=== PATIENT | female | born 1945 | race Caucasian/White ===

== ENCOUNTER 2020-01-09 10:21 | Outpatient (RCR) | payer SELFPAY | END 2020-01-09 23:59 | disposition home or self-care (01) | LOC: ANHAUDIO 10:21 | PROVIDERS: PCP Family Medicine; Visit Provider Family Medicine | DX: Z46.1 Encounter for fitting and adjustment of hearing aid (principal) | CPT/HCPCS: 92593 ==

== ENCOUNTER → 2021-12-24 09:45 | Outpatient (CLI) | payer MEDICARE, SELFPAY ==
--- NOTE | ~2021-12-24 | XR_ITS ---
EXAMINATION: XR ankle RT min 3V, XR foot LT min 3V, XR foot RT min 3V, XR ankle LT min 3V DATE: 12/24/2021 10:34 INDICATION: Bilateral ankle joint effusions with bruising and swelling TECHNIQUE: 1. Anteroposterior, mortise, additional oblique and lateral view of the left ankle were obtained. 2. Dorsoplantar, two oblique and lateral views of the left foot were obtained. 3. Anteroposterior, mortise, additional oblique and lateral view of the right ankle were obtained. 4. Dorsoplantar, two oblique and lateral views of the right foot were obtained. COMPARISON: None. FINDINGS: Left foot and ankle: Hallux valgus and bunion with hypertrophic changes at the medial head of the first metatarsal. Alignm ent of the left foot and ankle is otherwise normal. No fracture or osteochondral lesion. Mild polyart icular osteoarthritis at the first metatarsophalangeal and multiple tarsometatarsal and interphalange al joints. Tiny Achilles calcaneal spur. Additional small enthesophytes and tiny enthesopathic ossicl es along the medial margin of the medial malleolus. Increased density anterior to the tibiotalar join t line consistent with likely left ankle joint effusion. The soft tissues are otherwise unremarkable. Right foot and ankle: Hallux valgus and bunion with mild hypertrophic change at the medial head of the first metatarsal. Al ignment of the right foot and ankle is otherwise normal. No fracture or osteochondral lesion. Small p lantar calcaneal spur. Mild polyarticular osteoarthritis at the metatarsophalangeal and a few tarsal metatarsal and interphalangeal joints. No ankle joint effusion. The soft tissues are unremarkable. IMPRESSION: 1. Likely left ankle joint effusion. 2. Mild degenerative skeletal changes at both feet as detailed above. No acute osseous abnormality. Reviewed, dictated and finalized at location B. IMPRESSION: 1. Likely left ankle joint effusion. 2. Mild degenerative skeletal changes at both feet as detailed above. No acute osseous abnormality. IMPRESSION: 1. Likely left ankle joint effusion. 2. Mild degenerative skeletal changes at both feet as detailed above. No acute osseous abnormality. IMPRESSION: 1. Likely left ankle joint effusion. 2. Mild degenerative skeletal changes at both feet as detailed above. No acute osseous abnormality.
== END ==
PROVIDERS: PCP Physician Assistant; Visit Provider Physician Assistant
DX: M20.12 Hallux valgus (acquired), left foot (principal); M20.11 Hallux valgus (acquired), right foot; M21.612 Bunion of left foot; M21.611 Bunion of right foot; M19.072 Primary osteoarthritis, left ankle and foot; M19.071 Primary osteoarthritis, right ankle and foot; M77.31 Calcaneal spur, right foot
CPT/HCPCS: 73610; 73630

== ENCOUNTER → 2022-03-19 11:04 | Outpatient (CLI) | payer MEDICARE, SELFPAY ==
--- NOTE | ~2022-03-19 | XR_ITS ---
EXAMINATION: XR hip BI 2V w AP pelvis DATE: 03/19/2022 11:22 INDICATION: Low back pain. TECHNIQUE: An anteroposterior view of the pelvis and 2 views of each hip were obtained. COMPARISON: None. FINDINGS: Bone alignment is normal. No fracture. There is moderate osteoarthritis of the hips. There is severe lumbar spondylosis. A staple line overlies the pelvis. IMPRESSION: 1. Moderate osteoarthritis of the hips. Reviewed, dictated and finalized at location B.
--- NOTE | ~2022-03-19 | XR_ITS ---
EXAMINATION: XR lumbar spine min 4V DATE: 03/19/2022 11:22 INDICATION: Low back pain. TECHNIQUE: 5 views of lumbar spine were obtained. COMPARISON: None. FINDINGS: There is 3 mm anterolisthesis of L4 on L5. There is 3 degrees dextrocurvature of lumbar spi ne. Vertebral body heights are normal. There is moderately decreased disc height at L2-L3 and L3-L4, mildly decreased disc height at L4-L5, and severely decreased disc height at L5-S1. There is multilev el facet joint osteoarthritis, severe on the right at L4-L5 and L5-S1 and severe on the left from L3- L4 through L5-S1. IMPRESSION: 1. Severe lumbar spondylosis. Reviewed, dictated and finalized at location B.
== END ==
PROVIDERS: PCP Family Medicine; Visit Provider Physician Assistant
DX: M54.50 Low back pain, unspecified (principal); M47.816 Spondylosis without myelopathy or radiculopathy, lumbar region; M16.0 Bilateral primary osteoarthritis of hip
CPT/HCPCS: 72110; 73521

== ENCOUNTER 2023-05-17 10:41 | Outpatient (CLI) | payer MEDICARE, SELFPAY ==
--- NOTE | ~2023-05-17 | US_ITS ---
EXAMINATION:US venous doppler LE RT INDICATION:Right leg pain TECHNIQUE: Multiple grayscale, color flow and Doppler images of the right lower extremity deep venous systems were obtained and reviewed. COMPARISON:No prior studies for comparison. FINDINGS: The common femoral, superficial femoral and popliteal veins demonstrate normal respiratory variation, augmentation and compressibility. Color flow is also seen within the posterior tibial, pe roneal, greater saphenous and profunda veins. IMPRESSION: 1: No lower extremity deep venous thrombosis. Reviewed, dictated and finalized at location L. ARTIST
== END 2023-05-17 10:42 | disposition home or self-care (01) ==
PROVIDERS: PCP Family Medicine; Visit Provider Physician Assistant
DX: M79.604 Pain in right leg (principal)
CPT/HCPCS: 93971

== ENCOUNTER 2023-06-01 13:19 | Outpatient (CLI) | payer MEDICARE, SELFPAY ==
--- NOTE | ~2023-06-01 | US_ITS ---
EXAMINATION: US carotid duplex BI DATE: 06/01/2023 14:24 INDICATION: Pulsatile tinnitus, right ear. TECHNIQUE: Grayscale, color Doppler, and pulsed Doppler images of the cervical carotid arteries were obtained. The degree of vessel stenosis is placed in one of the following categories: normal, <50%, 5 0-69%, >=70% but less than near-occlusion, near-occlusion, or total occlusion. Note that percent sten osis relative to normal distal artery lumen diameter is indirectly measured from velocity measurement s as described by Anuj, et al. Radiology 2003; 229:340-346. COMPARISON: None. FINDINGS: RIGHT: The right common carotid artery (CCA) peak systolic velocity (PSV) is 71 cm/s. The right internal car otid artery (ICA) PSV is 100 cm/s. The right ICA end-diastolic velocity (EDV) is 32 cm/s. The right I CA/CCA PSV ratio is 1.4. Grayscale and color Doppler images yield an estimate of <50% diameter reduct ion from plaque in the ICA. There is antegrade flow in the right vertebral artery. LEFT: The left CCA PSV is 91 cm/s. The left ICA PSV is 109 cm/s. The left ICA EDV is 34 cm/s. The left ICA/ CCA PSV ratio is 1.2. Grayscale and color Doppler images yield an estimate of <50% diameter reduction from plaque in the ICA. There is antegrade flow in the left vertebral artery. IMPRESSION: 1. <50% stenosis in the right internal carotid artery. 2. <50% stenosis in the left internal carotid artery. Reviewed, dictated and finalized at location E. CY TRAINER
== END 2023-06-01 13:20 | disposition home or self-care (01) ==
PROVIDERS: PCP Family Medicine; Visit Provider Physician Assistant
DX: I65.23 Occlusion and stenosis of bilateral carotid arteries (principal); H93.A1 Pulsatile tinnitus, right ear; I12.9 Hypertensive chronic kidney disease with stage 1 through stage 4 chronic kidney disease, or unspecified chronic kidney disease
CPT/HCPCS: 93880

== ENCOUNTER 2024-08-29 08:43 | Outpatient (CLI) | payer MEDICARE, SELFPAY ==
--- NOTE | ~2024-08-29 | CT_ITS ---
CT ANGIOGRAM NECK AND HEAD History: Retinal hemorrhage. Technique: Axial noncontrast imaging of the brain was performed. Serial spiral axial images through t he head and neck were then obtained during arterial phase IV injection of 100 cc of Omnipaque 350. 3- D postprocessing and MIP images were then reconstructed on the remote workstation. Dose reduction mukesh hnique was used on this scan by utilizing automated exposure control and iterative reconstruction mukesh hnique. The dose-length product (DLP) was 1415.06 mGy-cm. CTA neck findings: Bilateral vertebral arteries are patent. Bilateral common carotid, internal carot id, and external carotid arteries are patent. No large vessel occlusion or stenosis. No aneurysm. The proximal right internal carotid artery demonstrates 0% stenosis relative to the normal distal artery lumen diameter. The proximal left internal carotid artery demonstrates 0% stenosis relative to the n ormal distal artery lumen diameter. CTA head findings: Distal vertebral arteries, basilar artery, and posterior cerebral arteries are pat ent. Distal internal carotid arteries, middle cerebral arteries, and anterior shoulder arteries are p atent. No large vessel occlusion or stenosis. No aneurysm. Axial noncontrast imaging of the brain is unremarkable. No acute infarct, intracranial hemorrhage or mass lesion seen. No mass effect or midline shift. Leyva-white differentiation is intact. Ventricles a nd subarachnoid spaces are unremarkable. Paranasal sinuses and mastoid air cells are clear. Calvarium intact. No intraorbital abnormality seen. Impression: No significant abnormality seen. Reviewed, dictated and finalized at [facility]. Impression: No significant abnormality seen.
[2024-08-29 09:13] LABS: Estimated Glomerular Filt Rate 43
--- OUTSIDE RECORDS SUMMARY | 2024-08-29 09:18 | XMS_ITS | Referral Summary ---
Author Organization [facility] Address [address] [place] [address] Care Team Providers Care Assembler Flexible Leads Name Role Phone Kash Vela MD Primary Care Provider Tanvi Norris CNM Unavailable [phone] Encounters Date Type Department Care Team Description 07/04/2024 8:45 AM SOLAR INSTALLER PV Office Visit [facility] Surgery [address] [facility] Floor [address] [place] [id number] Lorena Thurman NP Atypical ductal hyperplasia of right breast (Primary Dx); Abnormal finding on breast imaging 07/04/2024 8:21 AM SOLAR INSTALLER PV - 07/04/2024 11:59 PM SOLAR INSTALLER PV Hospital Encounter [facility] - Breast Imaging [address] [place] [address] [address] [place] [address] Mass of right breast, unspecified quadrant; Other abnormal and inconclusive findings on diagnostic imaging of breast Discharge Disposition: Discharge to home or self care from Last 3 Months Allergies Active Allergy Reactions Criticality Noted Date Comments Acetaminophen-Codeine Nausea And Vomiting 04/15 Amoxicillin Clindamycin Dizziness High 05/29/2021 Codeine Prochlorperazine Urticaria Medium 03/01/2017 Propoxyphene Propoxyphene-Acetaminophen Nausea And Vomiting 04/15/2016 Medications meclizine (ANTIVERT) 25 mg tablet Take 1 tablet (25 mg total) by mouth as needed Active levothyroxine (SYNTHROID) 88 mcg tablet Take 1 tablet (88 mcg total) by mouth daily 01/24/2021 Active atenoloL (TENORMIN) 50 mg tablet Take 1 tablet (50 mg total) by mouth daily Active atorvastatin (LIPITOR) 20 mg tablet Take 1 tablet (20 mg total) by mouth nightly Active verapamil SR (CALAN SR) 120 mg CR tablet Take 1 tablet (120 mg total) by mouth daily 01/23/2021 Active losartan-hydroc hlorothiazide (HYZAAR) 100-25 mg per tablet Take 1 tablet by mouth daily 01/30/2021 Active aspirin 81 mg enteric coated tablet Take 1 tablet (81 mg total) by mouth daily Active coenzyme Q10 10 mg capsule Take 1 capsule (10 mg total) by mouth daily Active cyanocobalamin (Vitamin B-12) 100 mcg tabletIndicatio ns:Prevention of Vitamin B12 Deficiency Take 1 tablet (100 mcg total) by mouth daily Active estradioL (CLIMARA) 0.05 mg/[address] 1 patch on the skin once a week Three times a week Active pantoprazole DR (PROTONIX) 40 mg EC tablet Take 1 tablet (40 mg total) by mouth every morning 10/10/2023 Active baclofen (LIORESAL) 10 mg tablet Take 1 tablet (10 mg total) by mouth 3 (three) times a day as needed 10/27/2023 Active Active Problems Problem Noted Date Diagnosed Date Abnormal stress test 03/23/2021 Murmur, heart 03/23/2021 Essential hypertension 03/23/2021 Mixed hyperlipidemia 03/23/2021 Social History Tobacco Use Types Packs/Day Years Used Date Smoking Tobacco: Never Smokeless Tobacco: Never Tobacco Cessation:Counseling Given: Not Answered AUDIT-C Answer Date Recorded Frequency of Alcohol Consumption Not on file 12/28/2023 Q2: How many drinks containi ng alcohol do you have on a typical day when you are drinking? Patient does not drink Frequency of Binge Drinking Not on file 12/11 Comments Unknown Sex and Gender Information Value Date Recorded Sex Assigned at Not on file Legal Sex Female 7:50 PM SOLAR INSTALLER PV Gender Identity Not on file Sexual Orientation Not on file Last Filed Vital Signs Vital Sign Reading Time Taken Comments Blood Pressure 120/64 07/07/2021 9:36 AM SOLAR INSTALLER PV Pulse 71 07/07/2021 9:36 AM SOLAR INSTALLER PV Temperature - - Respiratory Rate - - Oxygen Saturation 97% 07/07/2021 9:36 AM SOLAR INSTALLER PV Inhaled Oxygen Concentration - - Weight 65.6 kg (144 lb 9.6 oz) 07/04/2024 8:26 A M SOLAR INSTALLER PV Height 165.1 cm (5' 5 ) 07/04/2024 8:26 AM SOLAR INSTALLER PV Body Mass Index 24.06 07/04/2024 8:26 AM SOLAR INSTALLER PV Plan of Treatment Not on file Medical Devices Implanted Type Area Gang Sawyer Device Identifier Shelf Expiration Date Model / Serial / Lot iPrint [facility] Eviva 13cm Identifier Biopsy Site [id number] - [id number] Implanted:Qty: 1 on 12/28/[address] [facility] [employer] [id number] [facility]02/[address] [facility]-13 / / [id number] Procedures Procedure Name Priority Date/Time Associated Diagnosis Comments DIAGNOSTIC MAMMOGRAM BILATERAL W PEDRO Schedule Routine, Read Routine (OP Routine) 07/04/2024 9:27 AM SOLAR INSTALLER PV Mass of right breast, unspecified quadrant Other abnormal and inconclusive findings on diagnostic imaging of breast from Last 3 Months Results * Diagnostic Mammogram Bilateral W Pedro (07/04/2024 9:27 AM SOLAR INSTALLER PV) Anatomical Region Laterality Modality Breast Bilateral Mammography 07/04/2024 9:46 AM SOLAR INSTALLER PV Impressions 07/04/2024 10:01 AM SOLAR INSTALLER PV 1. RIGHT breast postbiopsy changes. Recommend short-term follow-up with RIGHT diagnostic mammogram in 6 months, given incidental atypical ductal hyperplasia on biopsy on 12/28/2023. 2. No new suspicious mammographic abnormality in either breast. OVERALL FINAL ASSESSMENT: BI-RADS Category 3: Probably Benign. RECOMMENDATION: Recommend follow-up diagnostic breast imaging in 6 months with RIGHT mammogram, given incidental atypical ductal hyperplasia on biopsy on 12/28/2023. Dr. Marcos discussed the above findings and recommendations with the patient, who expressed her understanding of the management plan. Dictated by: Marlon Marcos M.D. The radiology attending physician has personally reviewed this study, and had reviewed and/or edited this written report and agrees with it. Electronically signed by: Mary Kate Martino M.D. Narrative 07/04/2024 10:01 AM SOLAR INSTALLER PV EXAMINATION: BILATERAL DIGITAL DIAGNOSTIC MAMMOGRAM INCLUDING CAD AND BILATERAL DIGITAL BREAST TOMOSYNTHESIS HISTORY: 79-year-old female presents for six-month follow-up of the RIGHT breast. Stereotactic biopsy of RIGHT breast grouped calcifications on 12/28/2023 demonstrated fibroadenomatoid change with calcifications. There was also an incidental noncalcified component of atypical ductal hyperplasia. COMPARISON: Prior exams which date back to 01/08/2016, the most recent on 12/28/2023. TECHNIQUE: Full field digital mammographic views of BOTH breasts were performed, including computer aided detection (CAD) and BILATERAL digital breast tomosynthesis (DBT). BREAST PARENCHYMAL COMPOSITION: There are scattered areas of fibroglandular density. MAMMOGRAM FINDINGS: There are postbiopsy changes in the RIGHT breast. There is no new suspicious abnormality in either breast. Procedure Note Mary Kate Martino MD - 07/04/2024 EXAMINATION: BILATERAL DIGITAL DIAGNOSTIC MAMMOGRAM INCLUDING CAD AND BILATERAL DIGITAL BREAST TOMOSYNTHESIS HISTORY: 79-year-old female presents for six-month follow-up of the RIGHT breast. Stereotactic biopsy of RIGHT breast grouped calcifications on 12/28/2023 demonstrated fibroadenomatoid change with calcifications. There was also an incidental noncalcified component of atypical ductal hyperplasia. COMPARISON: Prior exams which date back to 01/08/2016, the most recent on 12/28/2023. TECHNIQUE: Full field digital mammographic views of BOTH breasts were performed, including computer aided detection (CAD) and BILATERAL digital breast tomosynthesis (DBT). BREAST PARENCHYMAL COMPOSITION: There are scattered areas of fibroglandular density. MAMMOGRAM FINDINGS: There are postbiopsy changes in the RIGHT breast. There is no new suspicious abnormality in either breast. IMPRESSION: 1. RIGHT breast postbiopsy changes. Recommend short-term follow-up with RIGHT diagnostic mammogram in 6 months, given incidental atypical ductal hyperplasia on biopsy on 12/28/2023. 2. No new suspicious mammographic abnormality in either breast. OVERALL FINAL ASSESSMENT: BI-RADS Category 3: Probably Benign. RECOMMENDATION: Recommend follow-up diagnostic breast imaging in 6 months with RIGHT mammogram, given incidental atypical ductal hyperplasia on biopsy on 12/28/2023. Dr. Marcos discussed the above findings and recommendations with the patient, who expressed her understanding of the management plan. Dictated by: Marlon Marcos M.D. The radiology attending physician has personally reviewed this study, and had reviewed and/or edited this written report and agrees with it. Electronically signed by: Mary Kate Martino M.D. [facility] DIRECTOR INBOUND SALES IMG MAMMO PROCEDURES Final Result from Last 3 Months Insurance MEDICARE COMMERCIAL GENERIC MEDICARE COMMERCIAL GENERIC MEDICARE [employer] Care Teams Assembler Flexible Leads Relationship Specialty Start Date End Date Kash Vela MD [address] [facility] [address] [place] [address] PCP - General Family Medicine 03/02/21 Tanvi Norris CNM [address] [place] [address] Referring Physician Midwifery 10/25/23
--- OUTSIDE RECORDS SUMMARY | 2024-08-29 09:18 | XMS_ITS | Encounter Summary ---
Author Organization [facility] Healthcare Address [address] [place] [address] Care Team Providers Care Vegetable Washer Name Role Phone Unavailable Primary Care Provider Unavailabl e Reason for Visit * Diagnostic Imaging (Routine) - Pending Review Specialty Diagnoses / Procedures Referred By Erichac t Referred To Contact Procedures Breast Imaging Diagnostic Outside Reference Transcribed Order, Provider Referral ID Status Reason Start Date Expiration Date V isits Requested Visits Authorized [id number] Pending Review 10/31/2023 11/29/2024 1 1 Encounter Details Date Type Department Care Team (Late st Contact Info) Description 03/24/2012 Hospital Encounter [facility] [address] [place] [id number] Social History Tobacco Use Types Packs/Day Years Used Date Smoking Tobacco: Never Smokeless Tobacco: Never AUDIT-C Answer Date Recorded Frequency of Alcohol Consumption Not on file 12/28/2023 Q2: How many drinks containi ng alcohol do you have on a typical day when you are drinking? Patient does not drink Frequency of Binge Drinking Not on file 12/11 Comments Unknown Sex and Gender Information Value Date Recorded Sex Assigned at Not on file Legal Sex Female 7:50 PM COMMUNICATIONS DIRECTOR Gender Identity Not on file Sexual Orientation Not on file documented as of this encounter Functional Status documented as of this encounter Plan of Treatment Not on file documented as of this encounter Procedures Procedure Name Priority Date/Time Associated Diagnosis Comments BREAST IMAGING MG DIAGNOSTIC OUTSIDE REFERENCE Routine 03/24/2012 12:00 AM CDT documented in this encounter Results * Breast Imaging Diagnostic Outside Reference (03/24/2012 12:00 AM CDT) Impressions [facility] - 10/31/2023 2:26 PM CDT These images are for Reference purposes only and have not been reviewed by [facility]. There will be no report generated by a [facility] Radiologist. Narrative [facility] - 10/31/2023 2:26 PM CDT EXAMINATION: Images For Reference Purposes Only us Provider Transcribed Order IMG MAMMO PROCEDURES Final Result [facility] documented in this encounter Visit Diagnoses Not on filedocumented in this encounter
--- OUTSIDE RECORDS SUMMARY | 2024-08-29 09:18 | XMS_ITS | Encounter Summary ---
Author Organization [facility] Healthcare Address [address] [place] [address] Care Team Providers Care Manager Of Manufacturing Name Role Phone Unavailable Primary Care Provider Unavailabl e Reason for Visit * Diagnostic Imaging (Routine) - Pending Review Specialty Diagnoses / Procedures Referred By Erichac t Referred To Contact Procedures Breast Imaging Screening Outside Reference Transcribed Order, Provider Referral ID Status Reason Start Date Expiration Date V isits Requested Visits Authorized [id number] Pending Review 11/03/2023 12/02/2024 1 1 Encounter Details Date Type Department Care Team (Late st Contact Info) Description 01/08/2016 Hospital Encounter [facility] [address] [place] [address] Social History Tobacco Use Types Packs/Day [...] on file Legal Sex Female 7:50 PM FITNESS TECHNICIAN Gender Identity Not on file Sexual Orientation Not on file documented as of this encounter Functional Status documented as of this encounter Plan of Treatment Not on file documented as of this encounter Procedures Procedure Name Priority Date/Time Associated Diagnosis Comments BREAST IMAGING MG SCREENING OUTSIDE REFERENCE Routine 01/08/2016 12:00 AM CDT documented in this encounter Results * Breast Imaging Screening Outside Reference (01/08/2016 12:00 AM CDT) Impressions [facility] - 11/03/2023 1:49 PM CDT These images are for Reference purposes only and have not been reviewed by [facility]. There will be no report generated by a [facility] Radiologist. Narrative [facility] - 11/03/2023 1:49 PM CDT EXAMINATION: Images For Reference Purposes Only us Provider Transcribed Order IMG MAMMO PROCEDURES Final Result [facility] documented in this encounter Visit Diagnoses Not on filedocumented in this encounter
--- OUTSIDE RECORDS SUMMARY | 2024-08-29 09:18 | XMS_ITS | Clinical Summary ---
Author Organization [facility] Address [address] [place] [address] Care Team Providers Care Rehabilitation Worker Name Role Phone Kash Vela MD Primary Care Provider Tanvi Norris CNM Unavailable [phone] Allergies Active Allergy Reactions Criticality Noted Date [...] 03/23/2021 Essential hypertension 03/23/2021 Mixed hyperlipidemia 03/23/2021 Encounters Date Type Department Care Team Description 07/04/2024 8:45 AM WOUND/OSTOMY NURSE Office Visit [facility] Surgery [address] [place] [address] [address] [place] [address] Lorena Thurman NP Atypical ductal hyperplasia of right breast (Primary Dx); Abnormal finding on breast imaging 07/04/2024 8:21 AM WOUND/OSTOMY NURSE - 07/04/2024 11:59 PM WOUND/OSTOMY NURSE Hospital Encounter [facility] - Breast Imaging [address] [place] [address] 8 [place] [address] Mass of right breast, unspecified quadrant; Other abnormal and inconclusive findings on diagnostic imaging of breast Discharge Disposition: Discharge to home or self care from Last 3 Months Surgical History Surgery Date Site/Laterality Comments COLON SURGERY CHOLECYSTECTOMY BREAST BIOPSY 12/28/2023 Right Medical History Medical History Date Comments Other chest pain Agnosia Chronic kidney disease Hypertension Thyroid disease Hyperlipidemia Family History Medical History Relation Name Comments Organ Failure Brother 1 Heart disease Brother 2 Alzheimer's disease Father Hypertension Father Hypertension Mother Alzheimer's disease Sister Relation Name Status Comments Brother 1 (Age 40's) Brother 2 Alive Father (Age 70's) Mother (Age 70's) Sister Alive Social History Tobacco Use Types Packs/Day Years [...] on file Legal Sex Female 7:50 PM WOUND/OSTOMY NURSE Gender Identity Not on file Sexual Orientation Not on file Obstetrics History Last Filed Vital Signs Vital Sign Reading Time Taken Comments Blood Pressure 120/64 07/07/2021 9:36 AM WOUND/OSTOMY NURSE Pulse 71 07/07/2021 9:36 AM WOUND/OSTOMY NURSE Temperature - - Respiratory Rate - - Oxygen Saturation 97% 07/07/2021 9:36 AM WOUND/OSTOMY NURSE Inhaled Oxygen Concentration - - Weight 65.6 kg (144 lb 9.6 oz) 07/04/2024 8:26 A M WOUND/OSTOMY NURSE Height 165.1 cm (5' 5 ) 07/04/2024 8:26 AM WOUND/OSTOMY NURSE Body Mass Index 24.06 07/04/2024 8:26 AM WOUND/OSTOMY NURSE Plan of Treatment Health Maintenance Due Date Last Done Comments Depression Screening 1943 Fall Risk Assessment 1943 Osteoporosis Screening-Bone Density Scan 1943 DTaP/Tdap/Td Vaccine (1 - Tdap) 1954 Hepatitis B Screening 1961 Pneumococcal vaccine 65+ (1 of 1 - PCV) 1993 Zoster Vaccine (1 of 2) 1993 Well Visit 65+ 2008 Covid-19 Vaccine (3 - season) 02/12/202409/2020, 07/17/2020 Influenza Vaccine (#1) 2024 Medical Devices Implanted Type Area Attending Pathologist Device Identifier Shelf Expiration Date Model / Serial / Lot [employer] Eviva 13cm Identifier Biopsy Site [id number] - [id number] Implanted:Qty: 1 on 12/28/2023 at [facility] [employer] [id number] 02/02/2024 [facility] / [id number] Procedures Procedure Name Priority Date/Time Associated Diagnosis Comments DIAGNOSTIC MAMMOGRAM BILATERAL W JAZZ Schedule Routine, Read Routine (OP Routine) 07/04/2024 9:27 AM WOUND/OSTOMY NURSE Mass of right breast, unspecified quadrant Other abnormal and inconclusive findings on diagnostic imaging of breast from Last 3 Months Results * Diagnostic Mammogram Bilateral W Jazz (07/04/2024 9:27 AM WOUND/OSTOMY NURSE) Anatomical Region Laterality Modality Breast Bilateral Mammography 07/04/2024 9:46 AM WOUND/OSTOMY NURSE Impressions 07/04/2024 10:01 AM WOUND/OSTOMY NURSE 1. RIGHT breast postbiopsy changes. Recommend short-term [...] Kate Martino M.D. Narrative 07/04/2024 10:01 AM WOUND/OSTOMY NURSE EXAMINATION: BILATERAL DIGITAL DIAGNOSTIC MAMMOGRAM INCLUDING CAD [...] Electronically signed by: Mary Kate Martino M.D. Lorena Thurman RETOUCHING OPERATOR IMG MAMMO PROCEDURES Final Result from Last 3 Months Insurance MEDICARE COMMERCIAL GENERIC Member Subscriber Plan / Payer (Ef fective 2021-Present) Name:Nell Zuleta Relation to Subscriber:Self Name:Nell Zuleta Payer ID:[id number] Group ID:Not on file Type:COMMERCIAL Address: [place] [address] [place] [id number] COMMERCIAL GENERIC MEDICARE [place] Care Teams Rehabilitation Worker Relationship Specialty Start Date End Date Kash Vela MD [address] [place] [address] PCP - General Family Medicine 03/02/21 Tanvi Norris CNM [address] [place] [address] Referring Physician Midwifery 10/25/23
--- OUTSIDE RECORDS SUMMARY | 2024-08-29 09:18 | XMS_ITS | Encounter Summary ---
Author Organization [facility] Healthcare Address [address] [place] [address] Care Team Providers Care Extension Educator Name Role Phone Unavailable Primary Care Provider Unavailabl e Reason for Visit * Diagnostic Imaging (Routine) - Pending Review Specialty Diagnoses / Procedures Referred By Soo t Referred To Contact Procedures Breast Imaging Screening Outside Reference Transcribed Order, Provider Referral ID Status Reason Start Date Expiration Date V isits Requested Visits Authorized [id number] Pending Review 10/31/2023 11/29/2024 1 1 Encounter Details Date Type Department Care Team (Late st Contact Info) Description 03/17/2012 Hospital Encounter [facility] [address] [place] [id number] Social History Tobacco Use Types Packs/Day [...] on file Legal Sex Female 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 Gender Identity Not on file Sexual Orientation Not on file documented as of this encounter Functional Status documented as of this encounter Plan of Treatment Not on file documented as of this encounter Procedures Procedure Name Priority Date/Time Associated Diagnosis Comments BREAST IMAGING MG SCREENING OUTSIDE REFERENCE Routine 03/17/2012 12:00 AM CDT documented in this encounter Results * Breast Imaging Screening Outside Reference (03/17/2012 12:00 AM CDT) Impressions [facility] - 10/31/2023 2:26 PM CDT These images are for Reference purposes only and have not been reviewed by [facility]. There will be no report generated by a [facility] Radiologist. Narrative [facility] - 10/31/2023 2:26 PM CDT EXAMINATION: Images For Reference Purposes Only us Provider Transcribed Order IMG MAMMO PROCEDURES Final Result [facility] documented in this encounter Visit Diagnoses Not on filedocumented in this encounter
--- OUTSIDE RECORDS SUMMARY | 2024-08-29 09:18 | XMS_ITS | Clinical Summary ---
Author Organization [facility] Address [address] [place] [address] Care Team Providers Care Cleaner Name Role Phone Kash Vela MD Primary Care Provider [phone] Social History Tobacco Use Types Packs/Day Years Used Date Smoking Tobacco: Never Assessed Comments Unknown Sex and Gender Information Value Date Recorded Sex Assigned at Not on file Legal Sex Female 4:53 PM CDT Gender Identity Not on file Sexual Orientation Not on file Plan of Treatment Health Maintenance Due Date Last Done Comments DTaP, Tdap and Td Vaccines ( 1 - Tdap) 1962 Zoster Vaccines (1 of 2) 1993 Annual Medicare Wellness Visit 2008 Dexa Scan (General) 2008 Pneumococcal Vaccine: 65+ Years (1 of 1 - PCV) 2008 RSV Immunization or 60+ Years (1 - 1-dose 75+ series) 2018 COVID-19 Vaccine (4 - 2023-2 5 season) 2024 05/04/2021, 08/14/2020, 07/17/2020 Influenza Adult (#1) 2024 Meningococcal B Vaccine Aged Out No l onger eligible based on patient's age to complete this topic Meningococcal Vaccine Aged Out No roger melquiades eligible based on patient's age to complete this topic RSV Immunizations Under 20 Months Aged Out No longer eligible b ased on patient's age to complete this topic Insurance MEDICARE [facility] Care Teams Cleaner Relationship Specialty Start Date End Date Kash Vela MD [address] [facility] [address] [place] [address] PCP - General FAMILY PRACTICE 11/24/21
--- OUTSIDE RECORDS SUMMARY | 2024-08-29 09:18 | XMS_ITS | Continuity of Care Document ---
Author Organization [employer] Address [address] [place] [address] Phone Care Team Providers Care Service Member Name Role Phone Lu Herron MD Unavailable Unavailabl e Allergies, Adverse Reactions, Alerts Substance Reaction Status Criticality PROPOXYPHENE NAPSYLATE Active No In formation acetaminophen Active No Information PROCHLORPERAZINE MALEATE Active No Information PROCHLORPERAZINE EDISYLATE Active N o Information amoxicillin Active No Information Medications Medication Instructions Dosage Effective Dates (start - stop) Status Comments Linzess 145 mcg capsule take 1 capsule by oral route every day 145 MCG - Active verapamil ER 120 mg 24 hr capsule,extended release take 1 capsule by oral route every day 120 MG - Active atenolol 50 mg tablet take 1 tablet by oral route every day 50 MG - Active losartan 100 mg-hydrochlorothiazid e 25 mg tablet take 1 tablet by oral route every day 1.00 tablet - Active levothyroxine 50 mcg capsule take 1 capsule by oral route every day 50 MCG - Active Aspir-Low 81 mg tablet,delayed release take 1 tablet by oral route every day - Active atorvastatin 20 mg tablet take 1 tablet by oral route every day 20 MG - Active Advance Directives Directive Yes / No Effective Date File Name No Information Encounters Encounter Description Practice Location Reason(s) For Visit Diagnoses Date Provider Providers Copied on Encounter [facility], [address], [place], [place], [id number] , [place] tel: [phone] [facility] Constipation, unspecified 4 Germaine Leigh. [address] [facility] [place] [address], [place], [place], [id number], [place]. tel:[phone] Referring Provider: Kash Vela, [address], [facility]. tel:[phone] [facility], [address], [place], [place], [id number] , tel: [phone] [facility] Constipation, unspecified [address] [place] Picha. [address] [place] [address], [address], [id number], . tel:[phone] Referring Provider: Kash Vela, [address], [facility]. tel:[phone] [facility], [address], [place], [place], [id number] , tel: [phone] [facility] Constipation, unspecified 3[address] [place] Picha. [address] [place] [address], [address], [id number], . tel:[phone] Referring Provider: Kash Vela, [address], [facility]. tel:[phone] [facility], [address], [place], [place], [id number] , tel: [phone] [facility] Other allergy, other than to medicinal agentsHTNHypothyro idismOther symptoms involving digestive systemConstipation , unspecified 0 4 [place] Picha. [address] [place] [address], [address], [id number], . tel:[phone] Referring Provider: Kash Vela, [address], [facility]. tel:[phone] Family History Family Member Type Diagnosis Age At Onset Mother Problem (finding) stroke Brother Problem (finding) Irritable bowel disease Sister Problem (finding) Irritable bowel disease Payers Payer name Insurance type Covered democrat ID Authoriza tion(s) MEDICARE MB [id number] DEETH AUSTRALIAN CI [id number] Social History Type Description Quantity Date Captured Comments Alcohol Use Details No Caffeine Use Details coffee 2 cups per day Tobacco Use Status No Information Smoking Status Never smoker Sex Female Vital Signs Date / Time: Height Weight BMI Pulse Rate Blood Pressure Temperature Respiratory Rate Body Surface Area Head Circumference Head Circ. Percentile Wt./Damien. Percentile BMI percentile Pulse Ox Inhaled Ox 1:32 PM 65.50 in 72.121 kg (159.00 lbs) 26.0 6 kg/m eter (2) 62 /min 166/77 mm[Hg] 98.50 F 98 % Chief Complaint And Reason For Visit No Information Reason For Referral Reason For Referral No Information History Of Present Illness Encounter Date Complaint History Of Prese nt Illness No Information Functional Status Date Functional Assessmen t No Information Instructions Date Instruction Additional Infor mation No Information Assessments Type Assessment Date No Information Patient Care Teams Name Effective Dates (start - stop) Status Members No Information
--- OUTSIDE RECORDS SUMMARY | 2024-08-29 09:18 | XMS_ITS | Clinical Summary ---
Author Organization [facility] Address [address] [place] [address] Care Team Providers Care Talent Acquisition Director Name Role Phone Kash Vela MD Primary Care Provider [phone] Source Comments [facility],non-owned Affiliates and Associated Physician Practices is amultiple site organization consisting of ambulatory clinics and hospital sitesin [place], [place], [place] and [place]. This disclosure is being madepursuant to the Care Everywhere program and may not contain all information available regarding this patient. Last updated 18.[facility] Allergies Active Allergy Reactions Criticality Noted Date Comments Amoxicillin Rash Medium 04/15/2016 Clindamycin Dizziness High 05/29/2021 Prochlorperazine Urticaria Medium 03/01/2017 Propoxyphene N-Apap Nausea and/or Vomiting 08/2015 Acetaminophen-Codeine Nausea and/or Vomiting Medications * Be aware that medications may not be up to date on this document. Alwaysverify current medications with the patient. Medication Sig Dispensed Refills Start Date End Date Status aspirin (ASPIRIN) 81 MG tablet Take 1 (one) tablet by mouth once daily Active losartan-hydroCHLO ROthiazide (HYZAAR) 100-25 MG tablet Take 1 (one) tablet by mouth once daily Active levothyroxine (Synthroid) 75 MCG tablet Take 88 mcg by mouth daily before breakfast Active verapamil SR 24hr (VERELAN) 120 MG capsule Take 120 mg by mouth once daily Active atenolol (TENORMIN) 50 MG tablet Take 1 (one) tablet by mouth once daily Active atorvastatin (LIPITOR) 20 MG tablet Take 1 (one) tablet by mouth at bedtime Active meclizine (ANTIVERT) 25 MG tablet Take 1 (one) tablet by mouth as needed for Dizziness Active gabapentin (NEURONTIN) 100 MG capsuleIndications :Vulvar burning Take 1 capsule by mouth at bedtime 90 capsule 2 08/21/2019 Active Additional Information Patient not taking.Reported on 08/07/2022 traMADol (ULTRAM) 50 MG tablet Take 2 (two) tablets by mouth 3 times daily as needed for Pain 20 tablet 04/14/2021 Active Additional Information Patient not taking.Reported on 08/07/2022 Coenzyme Q10 10 MG Take 10 mg by mouth once daily Active cyanocobalamin 100 MCG tablet Take 1 (one) tablet by mouth once daily Active estradiol (CLIMARA) 0.05 MG/24HR patch Apply 1 patch to skin Active benzonatate (TESSALON PERLES) 100 MG capsule Take 1 (one) capsule by mouth 3 times daily as needed for Cough 30 capsule 05/29/2021 Active Additional Information Patient not taking.Reported on 08/07/2022 predniSONE (Deltasone) 10 MG tablet 40 mg po x 1 day, 30 mg po x 3 days, 20 mg po x 3 days, 10 mg po x 3 days 22 tablet 08/07/2022 Active Additional Information Patient not taking.Reported on 04/30/2023 vitamin E (Tocopheryl) 100 UNIT capsule Take by mouth once daily Active baclofen (Lioresal) 10 MG tabletIndications: Muscle Spasm Take 1 (one) tablet by mouth 3 times daily as needed for Muscle Spasms May cause drowsiness. Reasons: Muscle Spasm 30 tablet 10/27/2023 Active Additional Information Patient not taking.Reported on 07/24/2024 methylPREDNISolone (Medrol Dosepak) 4 MG tablet Take by mouth as directed Take as directed by mouth per package instructions. 21 tablet 07/24/2024 Active Active Problems Problem Noted Date Diagnosed Date Arthralgia of right lower leg 06/22/2023 Low back pain 04/06/2022 Vulvar burning 11/29/2018 Chronic vulvitis 11/29/2018 Chronic right-sided thoracic back pain 7 Encounters Date Type Department Care Team Description 07/24/2024 4:05 PM PLAYGROUND SUPERVISOR Ancillary Procedure [address] [address] Nohelia Jett, RATE CLERK PASSENGER-BARK GRINDER Injury of right ankle, initial encounter; Pain and swelling of right ankle; Pain of right foot; Localized swelling of right foot 07/24/2024 3:00 PM PLAYGROUND SUPERVISOR Office Visit [address] [address] Sprain and strain of right ankle (Primary Dx); Injury of right ankle, initial encounter; Pain and swelling of right ankle; Pain of right foot; Localized swelling of right foot 07/24/2024 Travel from Last 3 Months Family History Medical History Relation Name Comments Hypertension Father Hypertension Mother Relation Name Status Comments Father Mother Social History Tobacco Use Types Packs/Day Years Used Date Smoking Tobacco: Never Passive Smoke Exposure: Yes Smokeless Tobacco: Never Tobacco Cessation:Counseling Given: Not Answered Alcohol Use Standard Drinks/Week Comments No 0 (1 standard drink = 0.6 oz pur e alcohol) PHQ-2 Answer Date Recorded Patient Health Questionnaire-2 Score 0 07/24/2024 Sex and Gender Information Value Date Recorded Sex Assigned at Not on file Gender Identity Not on file Sexual Orientation Not on file Last Filed Vital Signs Vital Sign Reading Time Taken Comments Blood Pressure 122/70 07/24/2024 3:47 PM PLAYGROUND SUPERVISOR Pulse 76 07/24/2024 3:47 PM PLAYGROUND SUPERVISOR Temperature 36.1 C (97 F) 07/24/2024 3:47 PM PLAYGROUND SUPERVISOR Respiratory Rate 20 07/24/2024 3:47 PM PLAYGROUND SUPERVISOR Oxygen Saturation 99% 07/24/2024 3:47 PM PLAYGROUND SUPERVISOR Inhaled Oxygen Concentration - - Weight 66.2 kg (146 lb) 07/24/2024 3:47 PM PLAYGROUND SUPERVISOR Height 165.1 cm (5' 5 ) 11/08/2023 3:22 PM CDT Body Mass Index 24.3 11/08/2023 3:22 PM CDT Plan of Treatment Health Maintenance Due Date Last Done Comments BONE DENSITY TESTING 1945 MEDICARE AWV 12 MONTHS 1945 DTAP/TDAP/TD VACCINES (1 - Tdap) 1962 PNEUMOCOCCAL VACCINE 50+ (1 of 1 - PCV) 1993 ZOSTER VACCINE (1 of 2) 1993 Respiratory Syncytial Virus (RSV) Vaccine Pt: or over 60 yrs (1 - 1-dose 75+ series) 2018 COVID-19 VACCINE ( season) 2024 05/04/2021, 08/14/2020, 07/17/2020 INFLUENZA VACCINE (#1) 2024 07/03/2021 DEPRESSION SCREENING Completed 07/24/2024, 10/27/2023, 08/07/2022, Additional history exists HEPATITIS B VACCINE Aged Out No longe r eligible based on patient's age to complete this topic HIB VACCINE Aged Out No longer eligi ble based on patient's age to complete this topic HPV VACCINE Aged Out No longer eligi ble based on patient's age to complete this topic MENINGOCOCCAL (Group B) VACCINE SHARED DECISION-MAKING Aged Out No longer eligible based on patient's age to complete this topic MENINGOCOCCAL GROUPS A/C/Y/W VACCINE Aged Out No longer eligible based on patient's age to complete this topic Procedures Procedure Name Priority Date/Time Associated Diagnosis Comments XR FOOT RIGHT 3VW OR MORE STAT 07/24/2024 4:15 PM PLAYGROUND SUPERVISOR Pain of right foot Localized swelling of right foot XR ANKLE RIGHT 3VW OR MORE STAT 07/24/2024 4:15 PM PLAYGROUND SUPERVISOR Injury of right ankle, initial encounter Pain and swelling of right ankle from Last 3 Months Results * XR Foot Right 3Vw or More (07/24/2024 4:15 PM PLAYGROUND SUPERVISOR) Anatomical Region Laterality Modality Ankle / Foot Computed Radiogr aphy 07/24/2024 5:03 PM PLAYGROUND SUPERVISOR Narrative 07/24/2024 5:04 PM PLAYGROUND SUPERVISOR PROCEDURE(s): XR ANKLE RIGHT 3VW OR MORE, XR FOOT RIGHT 3VW OR MORE DATE AND TIME OF EXAM(s): 07/24/2024 4:15 PM INDICATION(s): S99.911A: Injury of right ankle, initial encounter M25.571: Pain and swelling of right ankle M25.471: Pain and swelling of right ankle COMPARISON(s): None available. FINDINGS/IMPRESSION: No acute fracture or dislocation is seen. No significant osteophytic degenerative changes are seen. Moderate hallux valgus deformity is seen. Mild soft tissue swelling is seen at the right ankle. > Interpreting Provider: Sarahi Pierce MD on 07/24/2024 5:04 PM Procedure Note Sarahi Pierce MD - 07/24/2024 PROCEDURE(s): XR ANKLE RIGHT 3VW OR MORE, XR FOOT RIGHT 3VW OR MORE DATE AND TIME OF EXAM(s): 07/24/2024 4:15 PM INDICATION(s): S99.911A: Injury of right ankle, initial encounter M25.571: Pain and swelling of right ankle M25.471: Pain and swelling of right ankle COMPARISON(s): None available. FINDINGS/IMPRESSION: No acute fracture or dislocation is seen. No significant osteophytic degenerative changes are seen. Moderate hallux valgus deformity is seen. Mild soft tissue swelling is seen at the right ankle. > Interpreting Provider: Sarahi Pierce MD on 07/24/2024 5:04 PM Nohelia Jett RATE CLERK PASSENGER-BARK GRINDER DIAGNOSTIC REBEKA GING ORDERABLES * XR Ankle Right 3Vw or More (07/24/2024 4:15 PM PLAYGROUND SUPERVISOR) Anatomical Region Laterality Modality Lower Extremity Computed Radiogr aphy 07/24/2024 5:03 PM PLAYGROUND SUPERVISOR Narrative 07/24/2024 5:04 PM PLAYGROUND SUPERVISOR PROCEDURE(s): XR ANKLE RIGHT 3VW OR MORE, XR FOOT RIGHT 3VW OR MORE DATE AND TIME OF EXAM(s): 07/24/2024 4:15 PM INDICATION(s): S99.911A: Injury of right ankle, initial encounter M25.571: Pain and swelling of right ankle M25.471: Pain and swelling of right ankle COMPARISON(s): None available. FINDINGS/IMPRESSION: No acute fracture or dislocation is seen. No significant osteophytic degenerative changes are seen. Moderate hallux valgus deformity is seen. Mild soft tissue swelling is seen at the right ankle. > Interpreting Provider: Sarahi Pierce MD on 07/24/2024 5:04 PM Procedure Note Sarahi Pierce MD - 07/24/2024 PROCEDURE(s): XR ANKLE RIGHT 3VW OR MORE, XR FOOT RIGHT 3VW OR MORE DATE AND TIME OF EXAM(s): 07/24/2024 4:15 PM INDICATION(s): S99.911A: Injury of right ankle, initial encounter M25.571: Pain and swelling of right ankle M25.471: Pain and swelling of right ankle COMPARISON(s): None available. FINDINGS/IMPRESSION: No acute fracture or dislocation is seen. No significant osteophytic degenerative changes are seen. Moderate hallux valgus deformity is seen. Mild soft tissue swelling is seen at the right ankle. > Interpreting Provider: Sarahi Pierce MD on 07/24/2024 5:04 PM Nohelia Jett RATE CLERK PASSENGER-BARK GRINDER DIAGNOSTIC REBEKA GING ORDERABLES from Last 3 Months Care Teams Talent Acquisition Director Relationship Specialty Start Date End Date Kash Vela MD [address] [place] [address] PCP - General Family Medicine 04/15/16
== END 2024-08-29 08:44 | disposition home or self-care (01) ==
PROVIDERS: PCP Family Medicine; Visit Provider Physician Assistant Medical
DX: H35.60 Retinal hemorrhage, unspecified eye (principal)
CPT/HCPCS: 70496; 70498; Q9967

== ENCOUNTER 2025-02-19 08:37 | Outpatient (CLI) | payer MEDICARE, SELFPAY ==
--- NOTE | ~2025-02-19 | XR_ITS ---
EXAM/ PROCEDURE: XR thoracolumbar - 02/19/2025 8:42 CDT HISTORY: 79 years old Female with M54.6 - Pain in thoracic spine M54.6 - Pain in thoracic spine COMPARISON: None available TECHNIQUE: Three view(s) FINDINGS/ IMPRESSION: There are no fractures or dislocations.Multilevel degenerative changes are seen. Visualized portion of lungs are clear. Cholecystectomy clips seen. Reviewed, dictated and finalized at location N.
== END 2025-02-19 08:38 | disposition home or self-care (01) ==
LOC: MICIMG 08:39
PROVIDERS: PCP Family Medicine; Visit Provider Physician Assistant Medical
DX: M54.6 Pain in thoracic spine (principal); G89.29 Other chronic pain; Z90.49 Acquired absence of other specified parts of digestive tract
CPT/HCPCS: 72080